=== PATIENT | female | born 1995 ===

== ENCOUNTER 2017-07-03 12:44 | Emergency (ER) | payer OTHER ==
[2017-07-03 12:54] VITALS: RESP 16; TEMP 97.7
--- NOTE | 2017-07-03 13:14 | EDPHY ---
H & P Stated Complaint: weakness and dizziness. Time Seen by Provider: 07/03/17 13:12 HPI/ROS: CHIEF COMPLAINT: Presyncope HISTORY OF PRESENT ILLNESS: The patient presents the ED with a 1 day history of presyncope. The patient reportedly developed lightheadedness, nausea and dizziness while at class. She reports that she left class and while walking had an exacerbation of her symptoms. She needed to sit down eventually called for a ride. The patient reports she had similar symptoms a week ago. The patient denies any history of true syncope. She denies any history of fall or trauma. She currently has no complaints of chest pain, shortness of breath, leg pain or additional acute complaints. The patient denies significant past medical history aside from irritable bowel syndrome. She takes no prescription medications. REVIEW OF SYSTEMS: A comprehensive 10 point review of systems is otherwise negative aside from elements mentioned in the history of present illness. Source: Patient Exam Limitations: No limitations - Personal History LMP (Females 10-55): Now Current Tetanus Diphtheria and Acellular Pertussis (TDAP): Yes - Medical/Surgical History Hx Asthma: No Hx Chronic Respiratory Disease: No Hx Diabetes: No Hx Cardiac Disease: No Hx Renal Disease: No Hx Cirrhosis: No Hx Alcoholism: No Hx HIV/AIDS: No Hx Splenectomy or Spleen Trauma: No Other PMH: Denies - Social History Smoking Status: Never smoked - Physical Exam Exam: General Appearance: Alert, no distress Eyes: Pupils equal and round no pallor or injection ENT, Mouth: Mucous membranes moist Respiratory: There are no retractions, lungs are clear to auscultation Cardiovascular: Regular rate and rhythm Gastrointestinal: Abdomen is soft and nontender, no masses, bowel sounds normal Neurological: 5/5 strength all 4 extremities, cranial nerves 2-12 intact Skin: Warm and dry, no rashes Musculoskeletal: Neck is supple nontender Extremities: symmetrical, full range of motion Constitutional: Initial Vital Signs Temperature (C) 36.5 C 07/03/17 12:49 Heart Rate 69 07/03/17 12:49 Respiratory Rate 16 07/03/17 12:49 Blood Pressure 115/81 H 07/03/17 12:49 O2 Sat (%) 96 07/03/17 12:49 O2 Delivery Mode Room Air Allergies/Adverse Reactions: No Known Allergies Allergy (Unverified 07/03/17 12:54) Medical Decision Making - Diagnostics EKG Interpretation: EKG: Complete interpretation has been separately recorded in the [facility] archive. Summary impression: Sinus rhythm, rate 71 ED Course/Re-evaluation: ED course: The patient presents to the ED after an episode of presyncope. The patient's EKG demonstrated questionable low-voltage. Her blood pressure and heart rate are normal. She had an IV established. She received a L of normal saline for possible dehydration. The patient's laboratory studies including CBC, electrolytes and test are unremarkable. The patient did undergo an echocardiogram which demonstrates no evidence of a pericardial effusion without wall motion abnormality. I re-evaluated the patient at 2:40 p.m. And she remains hemodynamically stable. Her neurologic examination is normal. At this point time I do feel the patient can be discharged to home. She is advised to follow up with Cardiology for any ongoing symptoms Differential Diagnosis: Differential diagnosis considered includes arrhythmia, vasovagal episode, critical anemia, pericardial effusion, ectopic - Data Points Laboratory Results: Laboratory Results 07/03/17 12:55 07/03/17 12:55 07/03/17 07/03/17 07/03/17 12:55 12:55 12:55 WBC 7.56 10^3/uL 10^3/uL (3.80-9.50) RBC 4.70 10^6/uL 10^6/uL (4.18-5.33) Hgb 13.8 g/dL g/dL (12.6-16.3) Hct 40.9 % % (38.0-47.0) MCV 87.0 fL fL (81.5-99.8) MCH 29.4 pg pg (27.9-34.1) MCHC 33.7 g/dL g/dL (32.4-36.7) RDW 12.3 % % (11.5-15.2) Plt Count 301 10^3/uL 10^3/uL (150-400) MPV 10.1 fL fL (8.7-11.7) Neut % (Auto) 49.5 % % (39.3-74.2) Lymph % (Auto) 38.4 % % (15.0-45.0) Ferry % (Auto) 5.2 % % (4.5-13.0) Eos % (Auto) 5.2 % % (0.6-7.6) Baso % (Auto) 1.6 % % (0.3-1.7) Nucleat RBC Rel Count 0.0 % % (0.0-0.2) Absolute Neuts (auto) 3.75 10^3/uL 10^3/uL (1.70-6.50) Absolute Lymphs (auto) 2.90 10^3/uL 10^3/uL (1.00-3.00) Absolute Monos (auto) 0.39 10^3/uL 10^3/uL (0.30-0.80) Absolute Eos (auto) 0.39 10^3/uL 10^3/uL (0.03-0.40) Absolute Basos (auto) 0.12 10^3/uL H 10^3/uL (0.02-0.10) Absolute Nucleated RBC 0.00 10^3/uL 10^3/uL (0-0.01) Immature Gran % 0.1 % % (0.0-1.1) Immature Gran # 0.01 10^3/uL 10^3/uL (0.00-0.10) Sodium 142 mEq/L mEq/L (135-145) Potassium 3.8 mEq/L mEq/L (3.5-5.2) Chloride 105 mEq/L mEq/L (97-110) Carbon Dioxide 20 mEq/l L mEq/l (22-31) Anion Gap 17 mEq/L H mEq/L (8-16) BUN 9 mg/dL mg/dL (7-23) Creatinine 0.6 mg/dL mg/dL (0.6-1.0) Estimated GFR > 60 Glucose 97 mg/dL mg/dL (70-100) Calcium 9.6 mg/dL mg/dL (8.5-10.4) Beta HCG, Qual NEGATIVE Medications Given: Discontinued Medications Sodium Chloride (Ns) 1,000 mls @ 0 mls/hr IV EDNOW ONE; Wide Open PRN Reason: Protocol Stop: 07/03/17 13:18 Last Admin: 07/03/17 13:32 Dose: 1,000 mls Departure - Departure Disposition: Home, Routine, Self-Care Clinical Impression: Vasovagal syncope Condition: Good Instructions: Syncope (DC) Additional Instructions: 1. The workup in the emergency department demonstrates no obvious abnormality. 2. Please return to the ED for markedly worsening symptoms, chest pain, difficulty breathing, actual loss of consciousness or other concerns . 3. I do recommend following up with the rn [facility] you have been referred to for any ongoing symptoms. Referrals: Sowmya Joe MD [Medical Doctor] - As per Instructions
[2017-07-03] MEDS ORDERED: NS 1,000 ML IV ONE (13:17)
--- NOTE | 2017-07-03 13:19 | CPEKG ---
Heart Rate: 71 RR Interval: 845 P-R Interval: 184 QRSD Interval: 82 QT Interval: 396 QTC Interval: 431 P Fulton: 67 QRS [place]on: -9 T Wave F[place]: 40 EKG Severity - BORDERLINE ECG - EKG Impression: SINUS RHYTHM EKG Impression: LOW VOLTAGE THROUGHOUT Electronically Signed By: Isaac Small 03-Jul-2017 13:51:09
[2017-07-03 13:25] LABS: PLATELET COUNT 301 10^3/uL (150-400)
[2017-07-03 14:41] VITALS: BP 103/65; PULSE 68; O2SAT 97
--- NOTE | 2017-07-03 15:33 | ECHO ---
[email or web address] [address] [address] Main: [phone] Fax: Transthoracic Echocardiogram Name: JOSE FRANCISCO PARRA MR#: [id number] Study Date: 07/03/2017 Study Time: 01:54 PM Date of : 1995 Age: 22 year(s) Height: 175.3 cm (69 in.) Weight: 58.97 kg (130 lb.) BSA: 1.72 m2 Gender: Female Examination: Echo Indication: Chest pain/faint feeling Image Quality: Contrast: Requested by: Deric Santiago BP: / Heart Rate: Rhythm: Indication: Chest pain/faint feeling Procedure Staff Special Certificate Dictator: Radha Bae RDCS Reading Physician: José Miguel Sheikh MD Requesting Provider: Conclusions: Normal study Measurements: Chambers Valvular Assessment AV/MV Valvular Assessment TV/PV Normal Normal Normal Name Value Range Name Value Range Name Value Range Ao Jessica (MM): 2.6 cm (2.2 cm-3.7 AV Vmax: 1.68 m/s (1 m/s-1.7 TR Vmax: 2.52 mm/s ( - ) cm) m/s) TR PGmax: 25 mmHg ( - ) IVSd (2D): 0.8 cm (0.6 cm-1.1 AV maxP mmHg ( - ) syst. PAP: 30 mmHg ( - ) cm) AV meanP mmHg ( - ) LVDd (2D): 4.7 cm (3.9 cm-5.3 MV E Vmax: 1.12 m/s ( - ) cm) MV A Vmax: 0.60 m/s ( - ) LVDs (2D): 2.9 cm (2.1 cm-4 MV E/A: 1.87 ( - ) cm) LVPWd (2D): 0.7 cm ( - ) LVEF (MOD4): 68 % (>=55 %) Continued Measurements: Chambers Valvular Assessment AV/MV Valvular Assessment TV/PV Name Value Name Value Name Value LADs: 3.5 cm MV E/E' Septal: 11.40 CVP (est.): 5 mmHg LADs Lon.8 cm MV E/E' Lateral: 5.90 LA Area: 14.2 cm2 Findings: Left Ventricle: Normal size left ventricle. No LV hypertrophy. Normal global systolic LV function. EF is 68 %. No regional wall motion abnormality. Patient: JOSE FRANCISCO PARRA Study Date: 07/03/2017 Page 1 of 2 01:54 PM Right Ventricle: Normal size right ventricle. Left Atrium: The left atrium is normal in size. Right Atrium: The right atrium is normal in size. Mitral Valve: The mitral valve is normal in appearance and function. Aortic Valve: The aortic valve is normal in appearance and function. Tricuspid Valve: The tricuspid valve is normal in appearance and function. Trivial tricuspid valve regurgitation. Pulmonic Valve: The pulmonic valve is normal in appearance and function. Trivial pulmonic valve regurgitation. Aorta: The aorta is normal. Pericardium: No pericardial effusion. (No Signature Object) Patient: JOSE FRANCISCO PARRA Study Date: 07/03/2017 Page 2 of 2 01:54 PM [id number]
== END 2017-07-03 15:11 | disposition home or self-care (01) ==
LOC: EDUNIT#
DX: R55 Syncope and collapse (principal); E86.9 Volume depletion, unspecified